=== PATIENT | female | born 1960 | race Hispanic/Latino ===

== ENCOUNTER 2022-09-03 07:41 | Observation (INO) | payer BC ==
[2022-09-02 14:58] VITALS: BP 123/66
[~2022-09-03] VITALS: Ht 162.6 cm; Wt 87.5 kg
[2022-09-03] VITALS (20 sets, daily range): BP systolic 118–182; BP diastolic 55–89
[~2022-09-03 07:41] MED LIST: ASPI-1197 PO; ROSU10TA28 PO; TRANEXAMIC ACID 1000MG/10ML ONE
[2022-09-03] MEDS ORDERED: LACTATED RINGERS 1000ML 1,000 ML IV ONE (07:53)
[2022-09-03] MEDS: CEFAZOLIN SODIUM 1 GM VIAL ONE ×2 (08:15→12:55)
[2022-09-03] MEDS ORDERED: TERB250T89 PO (08:41)
[2022-09-03] MEDS ORDERED: TRANEXAMIC ACID 1000MG/10ML ONE (10:25)
[2022-09-03] MEDS ORDERED: BUPIVACAINE/PF 0.5% 30ML VIAL ONE (10:25)
[2022-09-03] MEDS ORDERED: SUCCINYLCHOLINE CHLORIDE 20 MG/ML 10 ML VIAL ONE (12:49)
[2022-09-03] MEDS ORDERED: GLYCOPYRROLATE 1 MG/5 ML SYRINGE ONE (12:49)
[2022-09-03] MEDS ORDERED: MIDAZOLAM HCL 1 MG/ML 2ML VIAL ONE (12:49)
[2022-09-03] MEDS ORDERED: LIDOCAINE PF 100MG/5ML (2%) SYRINGE 5ML ONE ×2 (12:49→12:55)
[2022-09-03] MEDS ORDERED: PROPOFOL 10 MG/ML 20ML VIAL IV ONE (12:50)
[2022-09-03] MEDS ORDERED: ROCURONIUM 10MG/1ML SYR 10 MG/ML ML ONE (12:50)
[2022-09-03] MEDS ORDERED: NEOSTIGMINE 5MG/5ML SYR IV ONE (12:50)
[2022-09-03] MEDS ORDERED: FENTANYL CITRATE PF 50 MCG/1 ML 2ML VIAL ONE (12:50)
[2022-09-03] MEDS ORDERED: MEPERIDINE-PF 25 MG/ML SYG ONE ×3 (13:41→15:43)
[2022-09-03] MEDS ORDERED: DEXAMETHASONE SOD PHOSPHATE 4 MG/ML 1ML VIAL ONE (14:15)
[2022-09-03] MEDS ORDERED: KETOROLAC 30MG VIAL (30MG/ML) ONE (14:16)
[2022-09-03] MEDS ORDERED: ONDANSETRON 4MG INJ ONE ×2 (14:16→15:15)
[2022-09-03] MEDS ORDERED: ACETAMINOPHEN 1,000 MG/100 ML VIAL IV ONE (15:15)
[2022-09-03] MEDS ORDERED: LABETALOL 20MG SYG IV ONE (15:17)
[2022-09-03] MEDS ORDERED: HYDRALAZINE 20MG/ML VIAL ONE (15:26)
[2022-09-03] MEDS ORDERED: POTASSIUM CHLORIDE 20MEQ/100ML 100 ML IV PRN (15:30)
[2022-09-03] MEDS ORDERED: 0.9%NACL 1000ML 1,000 ML IV SCH (15:30)
[2022-09-03] MEDS ORDERED: FERROUS FUMARATE 324 MG TABLET PO PRN (15:30)
[2022-09-03] MEDS ORDERED: LIDOCAINE HCL-MPF 1% 2ML VIAL IV PRN (15:30)
[2022-09-03] MEDS ORDERED: MORPHINE 4 MG SYG IVP PRN (15:30)
[2022-09-03] MEDS ORDERED: KCL 20 MEQ ERTAB PO PRN (15:30)
[2022-09-03] MEDS ORDERED: ONDANSETRON 4MG INJ IVP PRN (15:30)
[2022-09-03] MEDS: ACETAMINOPHEN 1,000 MG/100 ML VIAL IV SCH ×2 (15:30→21:15)
[2022-09-03] MEDS ORDERED: POTASSIUM CHLORIDE 10% ELIXIR 20 MEQ/15 ML UDCUP PO PRN (15:30)
[2022-09-03] MEDS ORDERED: HYDROCODONE/ACETAMINOPHEN 5/325 MG TAB PO PRN (15:30)
[2022-09-03] MEDS: CEFAZOLIN SODIUM 2 GM VIAL IVP SCH (21:06)
[2022-09-03] MEDS: IBUPROFEN 800MG + NS 250ML IV SCH (21:06)
[2022-09-03] MEDS: FAMOTIDINE 20MG TAB PO SCH (21:06)
[2022-09-04] VITALS: BP 116/48
[2022-09-04] MEDS: IBUPROFEN 800MG + NS 250ML IV SCH (02:26)
[2022-09-04] MEDS: ACETAMINOPHEN 1,000 MG/100 ML VIAL IV SCH (02:31)
[2022-09-04] MEDS: CEFAZOLIN SODIUM 2 GM VIAL IVP SCH (02:51)
[2022-09-04 04:00] VITALS: BP 116/56
[2022-09-04 05:42] LABS: HEMATOCRIT 33.3 % (36-48); MEAN CORPUSCULAR HGB CONC 33.9 g/dL (32.0-36.0); MEAN CORPUSCULAR VOLUME 91.5 fL (79-99); RED BLOOD CELL COUNT(AUTO) 3.64 MIL/uL (4.00-5.50); RED CELL DISTRIBUTION WIDTH 11.9 % (11.0-15.5); WHITE BLOOD COUNT (AUTO) 13.1 K/uL (4.8-10.8)
[2022-09-04 05:52] LABS: CREATININE 0.8 mg/dL (0.5-1.5)
[2022-09-04 07:15] VITALS: BP 130/66
[2022-09-04] MEDS ORDERED: TERBINAFINE HCL 250 MG PO SCH (09:00)
[2022-09-04] MEDS ORDERED: POLYETHYLENE GLYCOL 3350 17 GM POWD.PACK PO SCH (09:00)
[2022-09-04] MEDS ORDERED: ENOXAPARIN SODIUM 30 MG/0.3 ML SQ SCH (09:00)
[2022-09-04] MEDS: FAMOTIDINE 20MG TAB PO SCH (09:13)
[2022-09-04] MEDS: HYDROCODONE/ACETAMINOPHEN 10/325 MG TAB PO PRN ×2 (09:18→13:22)
[2022-09-04 11:15] VITALS: BP 147/53
[2022-09-04 15:10] VITALS: BP 149/64
[2022-09-06] MEDS ORDERED: BISACODYL 10 MG SUPP.RECT RC PRN (15:30)
== END 2022-09-04 16:30 | disposition home or self-care (01) ==
LOC: DAH 07:41 → DAHIP 07:42 → EDSEX 12:00 → 4AH 17:00 → 4DH 21:16
PROVIDERS: ADMIT Orthopaedic Surgery; ATTEND Orthopaedic Surgery
DX: M17.12 Unilateral primary osteoarthritis, left knee (principal); Z20.822 Contact with and (suspected) exposure to COVID-19; D16.9 Benign neoplasm of bone and articular cartilage, unspecified; E66.9 Obesity, unspecified; I89.0 Lymphedema, not elsewhere classified; Z85.830 Personal history of malignant neoplasm of bone; Z79.82 Long term (current) use of aspirin; Z79.899 Other long term (current) drug therapy; Z98.890 Other specified postprocedural states; Z68.33 Body mass index [BMI] 33.0-33.9, adult
CPT/HCPCS: 27447; 96368; S2900; 36415; 80048; 85027; 87426; 93005; 96365; 96366; 96372; 96375; 96376; 97039; G0378; J0330; J0360; J0690; J1100; J1650; J1741; J1885; J2001; J2175; J2250; J2405; J2704; J2710; J3010; J3490; J7030; J7120